=== PATIENT | male | born 1950 | race Caucasian/White ===

== ENCOUNTER 2016-09-30 11:33 | Emergency (ER) | payer MEDICARE, OTHER ==
[~2016-09-30] VITALS: Ht 177.8 cm; Wt 122.3 kg
[~2016-09-30 11:33] MED LIST: ASPI-973 PO; BENA20TA PO; CEPH-512 PO; HYDR-4003 PO; IBUP800T28 PO; LOVA40TA PO; METO25TA6 PO; OMEG1CAP25 PO; PANT40TA3 PO; SULF1TAB34 PO
[2016-09-30 11:36] VITALS: BP 148/95; PULSE 91; RESP 22; O2SAT 100
[2016-09-30 11:40] VITALS: BP 158/79; PULSE 70; RESP 14; O2SAT 98
[2016-09-30] MEDS ORDERED: TRAZ-115 PO (11:44)
--- NOTE | 2016-09-30 11:51 | ED.REPORT ---
HPI-Chest Pain 40 and Over Date of Service Sep 30, 2016 ED Provider: Yoni Kyle MD A 66 year old male presents to the ED complaining of chest pain that began at 1000 this morning. The pain was located in the center of his chest and he describes the pain as a "pulsating" pain. He reports one similar episode of pain in 2002 that was diagnosed as angina. Patient is not currently experiencing any pain and he is unsure what relieved his pain. He states that his symptoms began shortly after beginning CPAP and he initially felt like he was "suffocating". Patient has also been experiencing mild epigastric pain. He denies any diaphoresis, nausea or worsening SOB. Nursing Notes Stated Complaint: CHEST PAIN Chief Complaint: Chest Pain Nursing Notes Reviewed: Yes Allergies: Coded Allergies: No Known Drug Allergies (Verified Allergy, Unknown, 09/30/16) Scheduled Aspirin (Aspirin) 81 Mg Tablet 81 MG PO DAILY Benazepril (Benazepril) 20 Mg Tablet 20 MG PO DAILY Lovastatin (Lovastatin) 40 Mg Tablet 40 MG PO HS Metoprolol Tartrate (Metoprolol Tartrate) 25 Mg Tablet 25 MG PO BID [place]-3 Fatty Acids/Fish Oil ([place] 3 Fish Oil Softgel) 1 Each Capsule.dr 1 EACH PO DAILY Trazodone (Trazodone) 50 Mg Tablet 50 MG PO HS General Time Seen by MD: 11:51 Chief Complaint Chest pain Hx Obtained From: Patient Arrived By: Walk-in Sudden in Onset?: No Onset Occurred: 1 - 4 hours ago (1000) Symptom Duration: Since onset Location: : Chest left: Chest right Quality: Painful Radiation: : Does not radiate Migration/Movement: Reports: None Severity: Current: Moderate Severity: Maximum: Moderate Pertinent Negative: Pt denies other symptoms Recent Healthcare: No recent doctor visit, No recent hospitalization Risk Factors )( CAD Risk Stratification Risk factors reviewed )( TAD Risk Stratification Risk factors reviewed )( PE Risk Stratification Risk factors reviewed Past Medical History Past Medical History Notes: PCP: Dr. Abeba Mcdonald Past Medical History None reported. Past Surgical History shoulder cataracts and bilateral retinal attachments Smoking History Former Smoker Social History Alcohol Use: In recovery Drug Use: Denies drug use Other Social History: Good social support, , Local resident Occupation retired Ambulatory Status Independent Review of Systems Constitutional: Denies: Chills, Fever Respiratory: Denies: Shortness of breath Cardiovascular: Reports: Chest pain GI: Reports: Abdominal pain (mild), Denies: Nausea, Vomiting Skin: Denies Diaphoresis Neurologic: Denies: Change LOC Complete sys rev & neg: except as marked. Physical Exam Initial Vital Signs Vital Signs (First) Date Time Temp Pulse Resp B/P Pulse Ox O2 Delivery O2 Flow Rate FiO2 09/30/16 11:36 36.6 91 22 148/95 100 Room Air Initial VS: Reviewed Head / Eyes: Atraumatic, Normocephalic, PERRL Extremities: Vascular intact, Neuro intact, No swelling, No tenderness Skin: Warm, Dry, No cyanosis Neurologic: Alert, Oriented, Nonfocal Psychiatric: Mood/affect normal, Behavior normal, Normal thought content General/Constitutional: Awake, Alert Respiratory / Chest: Atraumatic, Breath sounds NL, Breath sounds = bilat Cardiovascular: Heart rate NL, Regular rhythm, Heart sounds NL, No gallop, No murmurs, No rubs Abdomen: Atraumatic, Soft, BS normoactive Tenderness/Guarding/Rebound: Positive: Tender epigastric (Mild) Organomegaly / Mass / Hernia: Negative: Hepatomegaly, Splenomegaly Interpretation & Diagnostics Lab Results Interpretation Result Diagram: 09/30/16 1151 09/30/16 1151 Test 09/30/16 11:51 09/30/16 14:10 White Blood Count 6.4th/mm3 (3.8-10.1) Red Blood Count 4.74mil/mm3 (4.40-5.80) Hemoglobin 15.4g/dL (13.8-17.2) Hematocrit 44.7% (41.0-50.0) Mean Corpuscular Volume 94.3fL (81-100) Mean Corpuscular Hemoglobin 32.5pg (27.0-35.0) Mean Corpuscular Hemoglobin Concent 34.5% (32.0-37.0) Red Cell Distribution Width 13.5% (12.3-15.4) Platelet Count 172bil/L (150-400) Neutrophils (%) (Auto) 70.0% (40-74) Lymphocytes (%) (Auto) 19.0% (14-46) Monocytes (%) (Auto) 9.0% (4-12) Eosinophils (%) (Auto) 1.6% (0-5) Basophils (%) (Auto) 0.2% (0-3) D-Dimer < 0.5mg/L (<0.50) Sodium Level 139mEq/L (134-144) Potassium Level 4.3mEq/L (3.5-5.2) Chloride Level 101mEq/L (97-108) Carbon Dioxide Level 27mmol/L (18-29) Blood Urea Nitrogen 14mg/dL (8-27) Creatinine 0.92mg/dL (0.76-1.27) Estimat Glomerular Filtration Rate 87mL/min (>59) Glucose Level 101mg/dL (60-99) Calcium Level 9.6mg/dL (8.5-10.1) Magnesium Level 2.0mg/dL (1.6-2.6) Total Bilirubin 0.6mg/dL (0.0-1.2) Aspartate Amino Transf (AST/SGOT) 30U/L (0-50) Alanine Aminotransferase (ALT/SGPT) 34U/L (0-44) Alkaline Phosphatase 60U/L (25-160) Pro-B-Type Natriuretic Peptide 120.4pg/mL (0-376) Total Protein 7.9g/dL (6.4-8.4) Albumin 4.4g/dL (3.4-5.0) Troponin T < 0.010ug/L (0.0-0.011) ECG Interpretation ECG Interpretation: Sinus Rhythm Rate 66 Time: 11:44 Interpreted by: ED physician Normal ECG Interpretation: No change from prior ECGs (05/07) X-Ray Chest Interpretation Chest Xray Interpretation: IMPRESSION: Source of chest pain is not found. Dictated by: Joaquin Patiño M.D. on 09/30/2016 at 12:28 Interpretation / Wet Read by: Interpret - Radiologist Re-Eval/Medical Decision Time of Eval: 14:53 Patient Status: Condition improved Re-Evaluation/Progress Note: Patient is rechecked. He is informed of his lab results, EKG results, X-ray results and diagnosis. All of the patient's questions are addressed. He understands and agrees with the treatment plan. Counseled Regarding: Diagnosis, Lab results, Need for follow-up, When/why to return to ED Discharge & Departure Primary Impression: Non-cardiac chest pain Disposition: Home Discharge Condition All VS Reviewed: Yes Condition: Stable Patient Instructions: Chest Pain (ED) Additional Instructions: Emergency department evaluation today included, examination, labs, ECG and chest x-ray. No serious cause for chest pain is identified. Confident that the symptoms he experienced today are not related to your heart. May use ibuprofen 400 mg every 6 hours as needed for recurrent symptoms. Continue previous home medications. Follow-up with primary care next week. Return to emergency department for chest pain different than experienced today or increasing chest pain shortness of breath feeling faint or fevers. Referrals: Abeba Mcdonald MD (PCP) Scribe Attestation Portions of this note were transcribed by Niranjan Will. I, Dr. Kyle personally performed the history, physical exam and medical decision-making; I reviewed and confirmed the accuracy of the information in the transcribed note. Signed by: Clementine Jacome, 09/30/16 1500. copies to: Abeba Mcdonald MD, Donald L MD Sep 30, 2016 11:51 NIRANJAN WILL Sep 30, 2016 11:55
[2016-09-30 12:05] LABS: BASOPHILS % (AUTO) 0.2 % (0-3); EOSINOPHILS % (AUTO) 1.6 % (0-5); Mean Corpuscular Hemoglobin 32.5 pg (27.0-35.0); Mean Corpuscular Volume 94.3 fL (81-100); Platelet Count 172 bil/L (150-400)
--- NOTE | 2016-09-30 12:30 | DRSVH ---
PROCEDURE: X-RAY CHEST ONE VIEW, PORTABLE ([id number]) INDICATIONS: CP TECHNIQUE: One view of the chest was acquired. COMPARISON: None. FINDINGS: Surgical changes and devices: None. Lungs and pleura: No pleural effusions or pneumothorax. Lungs are clear. Mediastinum: Mediastinal contours appear normal. Heart size is normal. Bones and chest wall: No suspicious bony lesions. Overlying soft tissues appear unremarkable. IMPRESSION: Source of chest pain is not found. Dictated by: Joaquin Patiño M.D. on 09/30/2016 at 12:28 Approved by: Joaquin Patiño M.D. on 09/30/2016 at 12:28
[2016-09-30 12:45] LABS: TROPONIN T < 0.010 ug/L (0.0-0.011)
[2016-09-30 15:12] VITALS: BP 130/95; PULSE 61; RESP 17; O2SAT 99
== END 2016-09-30 14:56 | disposition home or self-care (01) ==
LOC: SED 11:33
DX: R07.89 Other chest pain (principal); R10.13 Epigastric pain; R06.02 Shortness of breath; I10 Essential (primary) hypertension; Z99.89 Dependence on other enabling machines and devices; Z87.891 Personal history of nicotine dependence; Z79.82 Long term (current) use of aspirin